=== PATIENT | male | born 1945 | race Caucasian/White ===

== ENCOUNTER 2018-08-23 19:15 | Inpatient (IN) | payer MEDICARE, OTHER ==
[~2018-08-23] VITALS: Ht 175.3 cm; Wt 122.0 kg
--- NOTE | 2018-08-23 19:25 | NUR ---
BIBS FROM HOME C/O DEPRESSION, SI BUT NO PLAN; PT AAOX4, PT ON MONITOR ,VSS, NAD MD QUYEN AT FOR EVAL
[2018-08-23 20:26] LABS: BASOPHILS # (AUTO) 0.1 /CMM (0.0-0.2); BASOPHILS % (AUTO) 0.7 % (0.0-2.0); EOSINOPHILS % (AUTO) 2.7 % (0.0-6.0); HEMATOCRIT 40 % (39-51); HEMOGLOBIN 13.1 g/dL (13.5-17.5); LYMPHOCYTES # (AUTO) 0.9 /CMM (0.8-4.8); LYMPHOCYTES % (AUTO) 10.9 % (20.0-44.0); MEAN CORPUSCULAR HGB CONC 33 g/dl (31.0-36.0); MEAN CORPUSCULAR VOLUME 93 fL (80-96); MONOCYTES # (AUTO) 0.8 /CMM (0.1-1.30); MONOCYTES % (AUTO) 9.9 % (2.0-12.0); NEUTROPHILS % (AUTO) 75.8 % (43.0-81.0); PLATELET COUNT (AUTO) 172 /CMM (150-450); RED BLOOD CELL COUNT(AUTO) 4.28 MIL/uL (4.5-6.0); WHITE BLOOD COUNT (AUTO) 7.9 K/uL (4.3-11.0)
[2018-08-23 20:41] LABS: ACETAMINOPHEN 0 ug/ml (10-30); ALANINE AMINOTRANSFERASE 15 U/L (12-78); ALBUMIN 3.1 g/dL (3.4-5.0); ALCOHOL, BLOOD < 3 mg/dL (0-0); ALKALINE PHOSPHATASE 66 U/L (46-116); ASPARTATE AMINOTRANSFERASE 14 U/L (15-37); BILIRUBIN,DIRECT 0.1 mg/dL (0.0-0.2); BILIRUBIN,TOTAL 0.2 mg/dL (0.2-1.0); CALCIUM, SERUM 8.9 mg/dL (8.5-10.1); CARBON DIOXIDE 30 mmol/L (21-32); CHLORIDE 109 mmol/L (98-107); CREATININE 0.9 mg/dL (0.6-1.3); GLUCOSE 105 mg/dL (74-106); POTASSIUM 3.9 mmol/L (3.5-5.1); SALICYLATE 1.4 mg/dL (2.8-20.0); SODIUM SERUM 144 mmol/L (136-145); TOTAL PROTEIN, SERUM 6.9 g/dL (6.4-8.2)
[2018-08-23 20:55] LABS: UREA NITROGEN, BLOOD 19 mg/dL (7-18)
[2018-08-23] MEDS ORDERED: ASPIRIN 325 MG TABLET PO ONE (21:30)
--- NOTE | 2018-08-23 21:30 | NUR ---
PT WILL BE ADMITTED TO MEDICAL FLOOR FOR CP +TROP, EKG SHOWS AFIB
[2018-08-23] MEDS ORDERED: ASPIRIN 325 MG TABLET ONE (21:31)
--- NOTE | 2018-08-23 21:44 | NUR ---
Nicole villela in [facility] - 08/23/18 at 2146 by LENNY BED 313-1 VIVIENNE MACHUCA
--- NOTE | 2018-08-23 21:46 | NUR ---
BED 309-2 PER HOUSE SUP
[2018-08-23] MEDS ORDERED: MAGNESIUM HYDROXIDE 30 ML UDC PO PRN (22:00)
[2018-08-23] MEDS ORDERED: HYDROCODONE/APAP 5/325MG 1 EACH TABLET PO PRN (22:00)
[2018-08-23] MEDS ORDERED: MAG HYDROX/AL HYDROX/SIMETH 30 ML UDC PO PRN (22:00)
[2018-08-23] MEDS ORDERED: ONDANSETRON HCL/PF 4 MG/2 ML VIAL IVP PRN (22:00)
[2018-08-23] MEDS ORDERED: ZOLPIDEM TARTRATE 5 MG TABLET PO PRN (22:00)
[2018-08-23] MEDS ORDERED: ACETAMINOPHEN 325 MG TABLET PO PRN (22:00)
[2018-08-23] MEDS ORDERED: Z GUARD REMEDY 2 OZ OINT TP PRN (22:00)
--- NOTE | 2018-08-23 22:30 | NUR ---
URINE COLLECTED AND SENT TO LAB
--- NOTE | 2018-08-23 22:40 | NUR ---
report given to taylor apodaca for gabriela
[2018-08-23] MEDS: IV NS 0.9% 1,000 ML IV SCH (23:48)
[2018-08-24] VITALS (7 sets, daily range): BP systolic 120–150; BP diastolic 60–87
--- NOTE | 2018-08-24 | NUR ---
RN NOTES ADMITTED PATIENT FROM ER DUE TO CHEST PAIN AND ANXIETY, ALERT AND ORIENTED X4, ON ROOM AIR, LUNGS ARE CLEAR ON AUSCULTATION, ABDOMEN SOFT AND NON TENDER, ANXIOUS AND DEPRESSED PER PATIENT. PATIENT LIVES WITH OTHER PEOPLE, NOT EXACTLY ROOM MATES, AND PEOPLE LIVING WITH PATIENT CAUSES ANXIETY AND DEPRESSION. DURING INTERVIEW, PATIENT DISCLOSED HAVING SUICIDAL IDEATION, WITH PLAN TO SHOOT HEAD, DOES NOT OWN A GUN BUT KNOWS SOMEONE WITH A GUN AND HE CAN BORROW. AT THIS TIME, PATIENT DOES NOT WANT TO HURT SELF "THAT'S WHY I WENT TO THE ER." SKIN INTACT, AMBULATES, CONTINENT OF BOWEL AND BLADDER. PER ORDER, WILL BE ADMITTED FOR CHEST PAIN, DENIES CHEST PAIN AT THIS TIME, TROPONIN 0.027. ADMITTED SMOKING MARIJUANA FOR ANXIETY, TAKEN AND IN UNIT SAFE.
--- NOTE | 2018-08-24 00:15 | NUR ---
RN NOTES PER JEREMI AGUILAR RN, NO NEED FOR SITTER
--- NOTE | 2018-08-24 06:04 | NUR ---
RN NOTES PATIENT IS AWAKE AND ALERT, IRRITABLE, NOTED WHEEZING, MD NOTIFIED, NO NEW ORDER, MONITOR FOR SHORTNESS OF BREATH, COMPLAINING OF ANXIETY AND RESTLESSNESS, NO NEW ORDER FROM DR. VASQUEZ, MONITOR FOR SAFETY
--- NOTE | 2018-08-24 07:30 | NUR ---
COMPUTER TECHNOLOGY TEACHER OPENING NOTE RECEIVED PT IN BED, RESTING WITH EYES CLOSED. EYES OPEN SPONTANEOUSLY TO VERBAL STIMULI. PT IS A/OX4, IRRITABLE AND C/O OF BEING "EMOTIONALLY MESSED UP" AT THIS TIME. PT DENIES CURRENT SI AND AUDITORY OR VERBAL HALLUCINATIONS. PT REPORTS HAVING PREVIOUS THOUGHTS OF SI BUT DECLINES TO SPECIFY WHEN. PT STATES HE DOES NOT HAVE ANY PLANS TO HARM HIMSELF WHILE IN THE HOSPITAL. PER FAMILY PRACTICE NURSE PRACTITIONER RN, NO SITTER IS NEEDED AT THIS TIME PER NIGHT NURSING FIRE INVESTIGATION MANAGER. PT DENIES CHEST PAIN, SOB, BREATHING IS EVEN AND UNLABORED ON ROOM AIR. RIGHT FA #18G IV IS INFUSING NS @ 100ML/HR. PT IS ON INSECT CONTROL AIDE, HOWEVER 2 LEADS ARE OFF AND PT IS REFUSING TO HAVE LEADS REPLACED AT THIS TIME. EXPLAINED RISKS AND BENEFITS, PT STILL REFUSED AND STATES "IT'S TOO PAINFUL.". ALL NEEDS ATTENDED TO. BED IS LOCKED AND IN LOWEST POSITION, SIDE RAILS UP X3, BED ALARM ON, CALL LIGHT AND POSSESSIONS WITHIN REACH.
--- NOTE | 2018-08-24 08:15 | NUR ---
FLOOR FINISHER NOTE PER CHARGE NURSE NO SITTER INDICATED AT THIS TIME BECAUSE PT IS NOT ACTIVELY SUICIDAL.
[2018-08-24] MEDS: IV NS 0.9% 1,000 ML IV SCH (08:26)
--- NOTE | 2018-08-24 08:30 | NUR ---
BAKER PAINT NOTE PER GPS REPORTING LEAD THE UNIT RECEIVED COPY OF FAXED FACE SHEET.
[2018-08-24] MEDS ORDERED: IV NS 0.9% 1,000 ML IV PRN (08:38)
[2018-08-24 10:45] LABS: BASOPHILS % (AUTO) 0.8 % (0.0-2.0); EOSINOPHILS % (AUTO) 3.4 % (0.0-6.0); HEMATOCRIT 40 % (39-51); LYMPHOCYTES # (AUTO) 0.7 /CMM (0.8-4.8); LYMPHOCYTES % (AUTO) 11.2 % (20.0-44.0); MEAN CORPUSCULAR HGB CONC 33 g/dl (31.0-36.0); MEAN CORPUSCULAR VOLUME 94 fL (80-96); MONOCYTES # (AUTO) 0.7 /CMM (0.1-1.30); MONOCYTES % (AUTO) 10.2 % (2.0-12.0); NEUTROPHILS # (AUTO) 4.8 /CMM (1.8-8.9); NEUTROPHILS % (AUTO) 74.4 % (43.0-81.0); PLATELET COUNT (AUTO) 158 /CMM (150-450); RED BLOOD CELL COUNT(AUTO) 4.21 MIL/uL (4.5-6.0); WHITE BLOOD COUNT (AUTO) 6.4 K/uL (4.3-11.0)
[2018-08-24 11:06] LABS: CALCIUM, SERUM 8.5 mg/dL (8.5-10.1); CREATININE 0.9 mg/dL (0.6-1.3); MAGNESIUM 1.8 mg/dL (1.8-2.4); PHOSPHORUS 3.9 mg/dL (2.5-4.9)
--- NOTE | 2018-08-24 11:20 | NUR ---
NOZZLE TENDER NOTE INFORMED REGARDING PT REQUEST FOR ATIVAN PRN FOR ANXIETY. PER DR. LAU "GET PSYCH CONSULT".
[2018-08-24] MEDS ORDERED: MAG30ORA PO (11:50)
[2018-08-24] MEDS ORDERED: ACET325T53 PO (11:50)
[2018-08-24] MEDS ORDERED: MAGN400O6 PO (11:50)
--- NOTE | 2018-08-24 18:24 | NUR ---
MS RN OPENING NOTE PT IN BED, RESTING WITH EYES CLOSED. EYES OPEN SPONTANEOUSLY TO VERBAL STIMULI. PT IS A/OX4, PT DENIES CURRENT SI AND AUDITORY OR VERBAL HALLUCINATIONS. PT STATES HE DOES NOT HAVE ANY PLANS TO HARM HIMSELF WHILE IN THE HOSPITAL.. PT DENIES CHEST PAIN, SOB, BREATHING IS EVEN AND UNLABORED ON ROOM AIR. RIGHT FA #18G IV IS SALINE LOCKED WITHOUT REDNESS OR SWELLING. ADLS PROVIDED. PT IS CLEARED BY CARDIOLOGY FOR POSSIBLE TRANSFER TO GPS UNIT, PENDING PSYCH EVAL. ALL NEEDS ATTENDED TO. BED IS LOCKED AND IN LOWEST POSITION, SIDE RAILS UP X2, BED ALARM ON, CALL LIGHT AND POSSESSIONS WITHIN REACH. WILL ENDORSE TO ORTHOPEDIC DESIGNER NURSE FOR CONTINUITY OF CARE.
--- NOTE | 2018-08-24 19:31 | NUR ---
MS/RN NOTES PATIENT IN BED. ABLE TO VERBALIZE NEEDS, DISCUSSED WITH AM RN REGARDING DC PLANNING AND TRANSFER TO PSYCH, AWAITING FOR PSYCH CONSULT, DR KRAFT, PATIENT WAS MADE AWARE, VERBALIZE THE NEED TO BE IN PSYCH UNIT, NO PAIN REPORTED AND OBSERVED. COOPERATIVE BUT ANXIOUS AND WORRIED. WILL MONITOR. CALL LIGHTS WITHIN REACH. WILL MONITOR.
--- NOTE | 2018-08-24 19:47 | NUR ---
MS/RN NOTES PATIENT VERBALIZED THE NEED TO BE IN PSYCH UNIT, REPORTED FEELING THE NEED TO BE CHECKED IN KAYCE VERBALIZED THAT HE NEEDS SOME TREATMENT, WAS INFORMED ABOUT PSYCH MD COMING IN AWAITING WILL F/U, PATIENT REQUESTED IV TO BE REMOVED.
--- NOTE | 2018-08-24 20:22 | NUR ---
KAYCE VERBALIZED THE NEED TO SEE THE PSYCH DOCTOR, UPSET BEHAVIOR , CHARGE NURSE ASSISTED AND INFORMED ABOUT SR AYDETYSON WILL DO HIS ROUNDS IN JUST AWHILE. PATIENT INSIST THAT HE HAS BEEN WAITING FOR THE DOCTOR EVER SINCE THE MORNING HIS BEHAVIOR IS EXCALATING THAT HE REQUIRES TREATMENT AND TO BE CHECK IN MENTAL UNIT.
--- NOTE | 2018-08-24 21:00 | NUR ---
MS/RN NOTES PATIENT DISCHARGE TO GPS OVERFLOW DR BUTCHER AT BEDSIDE DISCUSSED AND ASSESS PATIENT WITH ORDERS RECEIVED, ID BAND REMOVE AND REPLACE FOR GPS, AWAKE, ALERT, ROOM ASSIGNED AT 309 GPS. REQUESTED ATIVAN FOR ANXIETY. ORDER PLACED AND VERIFIED.
== END 2018-08-24 20:00 | DRG 880 ==
LOC: ER 19:23 → TELE 22:05 → MED 08-24 15:51
PROVIDERS: ADMIT Family Medicine
DX: F41.9 Anxiety disorder, unspecified (principal); N17.0 Acute kidney failure with tubular necrosis; E44.1 Mild protein-calorie malnutrition; F32.9 Major depressive disorder, single episode, unspecified; J44.9 Chronic obstructive pulmonary disease, unspecified; M19.90 Unspecified osteoarthritis, unspecified site; Z82.49 Family history of ischemic heart disease and other diseases of the circulatory system; Z90.49 Acquired absence of other specified parts of digestive tract; E86.9 Volume depletion, unspecified; D63.8 Anemia in other chronic diseases classified elsewhere; E66.9 Obesity, unspecified; Z68.39 Body mass index [BMI] 39.0-39.9, adult; Z72.0 Tobacco use
CPT/HCPCS: 36415; 71045-TC; 80048-TC; 80061-TC; 80076-TC; 80305; 83735-TC; 84100-TC; 84484-TC; 85025-TC; 87081-TC; G0378; G0480; J7030

== ENCOUNTER 2018-08-24 21:07 | Inpatient (IN) | payer MEDICARE, OTHER ==
[~2018-08-24] VITALS: Ht 175.3 cm; Wt 112.9 kg
[~2018-08-24 21:07] MED LIST: ACET325T53 PO; MAG30ORA PO; MAGN400O6 PO
[2018-08-24 21:30] VITALS: BP 135/87
[2018-08-24] MEDS ORDERED: MAGNESIUM HYDROXIDE 30 ML UDC PO PRN (21:30)
[2018-08-24] MEDS ORDERED: TEMAZEPAM 7.5 MG CAPSULE PO PRN (21:30)
[2018-08-24] MEDS ORDERED: MAG HYDROX/AL HYDROX/SIMETH 30 ML UDC PO PRN (21:30)
[2018-08-24] MEDS ORDERED: ACETAMINOPHEN 325 MG TABLET PO PRN (21:30)
--- NOTE | 2018-08-24 21:30 | NUR ---
gps/overflow rn notes PATIENT ALERT, ORIENTED X3 ABLE TO VERBALIZE NEEDS, REPORTED BEHAVIOR OF SELF HARM, OSET BEHAVIOR REQUIRING ASSISTANCE FOR PSYCH CONSULT , OBSERVE AGITATED AND ANXIOUS SINCE MORNING, PER MD PCP DISCHARGE AND CLEARED BY CARDIAC AND DR BUTCHER ADMITING PSYCH MD TO RECEIVE PATIENT, NEW ADMIT ORDERS RECEIVED, CHARGE NURSE GPS ASSIST IN MEDICATION ORDERS, PATIENT BELONGINGS RECEIVED AND ENTERED, DISCUSSED PLAN OF CARE, WOULD BE MEDICATION FOR BEHAVIOR AND AGITATION, PHARMACY VERIFIED ORDER REQUESTED BY PATIENT ATIVAN AND SLEEPING PILL. ORDER RECEIVED. AND PATIENT VOLUNTARILY ADMIT TO GPS PATIENT REPORTED BEHAVIOR ESCALATION SEEK TREATMENT. WITH SITTER AT GPS OVER FLOW, AMBULATORY, ABLE TO COOPERATE AND PARTICIPATE AFTER DISCUSSED CARE AND PSYCH MD.WILL MONITOR.BELONGINGS RECEIVED, REFUSED TO HAVE PHOTO TAKEN AT THIS TIME. ABLE TO SIGNED CONSENT FORMS. VERBALIZE UNDERSTANDING.
[2018-08-24] MEDS: LORAZEPAM 0.5 MG TABLET PO PRN (21:46)
[2018-08-24] MEDS: TEMAZEPAM 15 MG CAPSULE PO PRN (23:14)
--- NOTE | 2018-08-25 | NUR ---
REFUSES PHOTO TAKEN OF WOUND.
--- NOTE | 2018-08-25 04:41 | NUR ---
REFUSED SKIN CHECK, REPORTED SKIN INTACT, WILL F/.U
--- NOTE | 2018-08-25 05:40 | NUR ---
REFUSED LAB DRAW.
--- NOTE | 2018-08-25 06:22 | NUR ---
309-G-2/RN NOTES PATIENT ALERT, ORIENTED, ABLE TO SLEEP INTERMITENTLY, ON BEHAVIOR MONITORING AND RELIEF OF AGITATION AND GIVEN SLEEP MEDS AT BEDTIME. WILL ENDORSE TO AM RN FOR EMMANUEL.
[2018-08-25] MEDS: LORAZEPAM 0.5 MG TABLET PO PRN ×2 (07:51→14:04)
--- NOTE | 2018-08-25 07:52 | NUR ---
RECEIVED PT REPORT FROM RN, PT HERE ON A VOLUNTARY HOLD R/T VERBALIZING FEELINGS OF HURTING ONE SELF. IN BED SLEEPING NO SOB NOT IN DISTRESS, RESPONDS TO VERBAL AND TACTILE STIMULI. A/Ox4 DENIES PAIN BUT C/O OF FEELING ANXIOUS. PRN ATIVAN 1MG GIVEN. WILLL MONITOR FOR ANY ASE. RECEIVED CONSENT FOR ADMINISTRATION OF PROZAC.
[2018-08-25] MEDS: FLUOXETINE HCL 20 MG CAPSULE PO SCH (09:30)
--- NOTE | 2018-08-25 09:33 | NUR ---
voided x1
--- NOTE | 2018-08-25 10:13 | NUR ---
voided in bathroom x1
--- NOTE | 2018-08-25 10:14 | NUR ---
offered pt a shower/change of clothes. refused at the moment but agreed to a later time.
--- NOTE | 2018-08-25 10:58 | NUR ---
voided in bathroom x 1,
--- NOTE | 2018-08-25 11:12 | NUR ---
pt refused lab draw, explained b/r of blood test. refused x 3
--- NOTE | 2018-08-25 12:13 | NUR ---
pt voided x1 in bathroom.
--- NOTE | 2018-08-25 13:45 | NUR ---
pt voided x 1 in bathroom. c/o feeling anxious and restless. ativan 1mg prn given
--- NOTE | 2018-08-25 14:48 | NUR ---
pt voided x 1 in bathroom
--- NOTE | 2018-08-25 15:00 | NUR ---
ant cryogenic transport driver: notes received pt in bed lying on his right side. sitter at bedside. no distress noted. pt is here voluntary. call light within reach. will continue to monitor.
[2018-08-25 16:00] VITALS: BP 144/87
--- NOTE | 2018-08-25 17:00 | NUR ---
gps ov doctor of nursing practice: notes lead burner supervisor called and informed us that we can move pt to gps unit now, pt made aware and wants to eat his dinner first. dinner served. report given to laurent avery) for continuity of care.
--- NOTE | 2018-08-25 17:40 | NUR ---
GPS RN OVERFLOW TRANSFER PT ARRIVED TO GPS UNIT VIA W/C FROM MS. PT IS A/O X3, AFEBRILE. RESPIRATIONS ARE EVEN AND UNLABORED, NOT IN ANY ACUTE DISTRESS NOTED. PT DENIES ANY PAIN AT THIS TIME, NO C/O SOB, N/V. PUPILS ARE REACTIVE TO LIGHT, BILATERAL HAND SORT LINE ARE STRONG AND EQUAL. PT IS AMBULATORY AND CONTINENT. ABDOMEN IS SOFT AND NONDISTENDED, BOWEL SOUNDS ARE PRESENT IN ALL 4 QUADRANTS UPON AUSCULTATION. DENIES ANY BLADDER DISCOMFORT. NO IV ACCESS. PT REFUSES SKIN ASSESSMENT. PER PREVIOUS NURSE FROM MS, PT'S SKIN IS INTACT. ALL BELONGINGS ARRIVED WITH PT AND ACCOUNTED FOR. PT STATED HE WANTS TO WATCH TV AND IS IN ACTIVITY ROOM WITH GROUP. WILL MONITOR THROUGHOUT SHIFT FOR CONTINUITY OF CARE.
[2018-08-25 17:45] VITALS: BP 129/69
--- NOTE | 2018-08-25 17:45 | NUR ---
gps ov farm tractor operator: notes moved pt to gps unit room 216-1 with all valuables/belongings via w/c accompanied by 2 staff.
[2018-08-25 20:18] VITALS: BP 127/76
[2018-08-26 08:00] VITALS: BP 153/92
[2018-08-26] MEDS: FLUOXETINE HCL 20 MG CAPSULE PO SCH (08:35)
--- NOTE | 2018-08-26 11:15 | NUR ---
JANNY met with the pt and he stated that he wanted to be provided with information regarding how he can replace his certificate. JANNY informed him that she would research how to go about doing that and would return with some information. Once the SW went to her office, she researched where the pt can go to replace his certificate in [place] and wrote down the information and provided it to the pt. The pt stated that he would call and figure out his situation.
--- NOTE | 2018-08-26 12:16 | NUR ---
Initial Discharge Plan: Pt currently resides at a facility called [facility] located at [address] [place] [address]; ([phone]). Per pt, he would not like to return because he did not like the environment. SW will work with the pt and the MD regarding appropriate discharge planning. SW will form a safe and proper discharge.
[2018-08-26] MEDS: LORAZEPAM 0.5 MG TABLET PO PRN ×2 (14:15→20:59)
--- NOTE | 2018-08-26 14:19 | NUR ---
GPS RN NOTE: PT REQUESTING ATIVAN FEELING ANXIOUS, ATIVAN 1 MG PO PRN GIVEN PER ORDER WILL CONTINUE MONITORING FOR SAFETY AND BEHAVIOR Q 15 MIN
[2018-08-26 16:00] VITALS: BP 110/73
[2018-08-26 19:02] LABS: CHOLESTEROL 147 mg/dL (<200); HDL CHOLESTEROL 39 mg/dL (40-60); LDL 99 mg/dL (0-99); TRIGLYCERIDES 112 mg/dL (30-150)
[2018-08-26] MEDS: DIVALPROEX SODIUM 250 MG TABLET.DR PO SCH (20:25)
[2018-08-26 20:29] VITALS: BP 143/81
[2018-08-26 21:02] LABS: CREATININE 1.3 mg/dL (0.6-1.3)
[2018-08-26] MEDS: TEMAZEPAM 15 MG CAPSULE PO PRN (23:55)
[2018-08-27 08:00] VITALS: BP 125/65
[2018-08-27] MEDS: FLUOXETINE HCL 20 MG CAPSULE PO SCH (09:00)
[2018-08-27] MEDS ORDERED: DIVALPROEX SODIUM 250 MG TABLET.DR PO SCH (09:00)
[2018-08-27] MEDS: DIVALPROEX SODIUM 250 MG TABLET.DR PO SCH ×3 (09:00→16:16)
[2018-08-27] MEDS: LORAZEPAM 0.5 MG TABLET PO PRN ×2 (11:32→21:10)
--- NOTE | 2018-08-27 11:33 | NUR ---
GPS RN NOTE: PT REQUESTING ATIVAN FEELING ANXIOUS, ATIVAN 1 MG PO PRN GIVEN PER ORDER WILL CONTINUE MONITORING FOR SAFETY AND BEHAVIOR Q 15 MIN
--- NOTE | 2018-08-27 15:31 | NUR ---
JANNY met with the pt in the activities room because he requested to have a meeting. The pt stated that he would like the SW to provide him with the number for the [employer]. JANNY went to her office to research the phone number and called the unit so that the Military Logistics Specialist, Anjel, was able to pass the number on to the pt.
[2018-08-27 16:00] VITALS: BP 151/74
--- NOTE | 2018-08-27 19:34 | NUR ---
RN NOTE :PATIENT WANTS TO LEAVE AT 11:00 AM .AT 11:10 PATIENT PUT ON 5150 HOLD FOR DTS AND GD BY ALLISON .
[2018-08-27 20:42] VITALS: BP 122/75
[2018-08-28] MEDS: TEMAZEPAM 15 MG CAPSULE PO PRN ×2 (00:05→22:13)
[2018-08-28 08:00] VITALS: BP 122/59
[2018-08-28] MEDS: FLUOXETINE HCL 20 MG CAPSULE PO SCH (08:31)
[2018-08-28] MEDS: DIVALPROEX SODIUM 250 MG TABLET.DR PO SCH ×3 (08:31→16:48)
[2018-08-28 16:00] VITALS: BP 138/80
[2018-08-28] MEDS: LORAZEPAM 0.5 MG TABLET PO PRN (16:54)
[2018-08-28] MEDS ORDERED: ALBUTEROL FS 2.5 MG/0.5 ML VIAL.NEB NEB PRN (17:30)
--- NOTE | 2018-08-28 17:56 | NUR ---
PT. SEEN ON THE VERY SIDE OF THE BED, DENIES HE FELL, HE SAID THAT HIS COFFEE FALL IN THE FLOOR. NO PAIN REPORTED. WILL CONTINUE TO MONITOR FOR SAFETY.
[2018-08-28] MEDS ORDERED: LACT1CAP89 PO (19:57)
[2018-08-28] MEDS ORDERED: HYDR12.5 PO (19:57)
[2018-08-28] MEDS ORDERED: APIX5TAB4 PO (19:57)
[2018-08-28] MEDS ORDERED: AMLO5TAB9 PO (19:57)
[2018-08-28] MEDS ORDERED: ASPI-869 PO (19:57)
[2018-08-28] MEDS ORDERED: ATOR40TA PO (19:57)
[2018-08-28] MEDS ORDERED: LEVO125T8 PO (19:58)
[2018-08-28] MEDS ORDERED: ONDA4TAB11 PO (19:58)
[2018-08-28] MEDS ORDERED: MULT-1119 PO (19:58)
[2018-08-28] MEDS ORDERED: NA P133E RC (19:58)
[2018-08-28] MEDS ORDERED: HYDR-4076 PO (19:58)
[2018-08-28] MEDS ORDERED: ZOLP5TAB8 PO (19:58)
[2018-08-28] MEDS ORDERED: MENT4PAS TP (19:58)
[2018-08-28] MEDS ORDERED: METO25TA6 PO (19:58)
[2018-08-28] MEDS ORDERED: ESCI10TA PO (19:58)
[2018-08-28 20:00] VITALS: BP 114/56
--- NOTE | 2018-08-29 00:16 | NUR ---
PATIENT STILL AWAKE, ANXIOUS, OFFERED AND PREPARED ATIVAN 1 MG TAB X2, AND REFUSED
[2018-08-29] MEDS: LORAZEPAM 0.5 MG TABLET PO PRN ×2 (07:07→16:16)
[2018-08-29 08:00] VITALS: BP 130/61
[2018-08-29] MEDS: DIVALPROEX SODIUM 250 MG TABLET.DR PO SCH ×3 (08:21→16:13)
[2018-08-29] MEDS: FLUOXETINE HCL 20 MG CAPSULE PO SCH (08:21)
--- NOTE | 2018-08-29 08:40 | NUR ---
JANNY was left a message from the pt's psychiatrist, Dr. Calvillo, stating that the pt will be discharged today. JANNY then faxed two referrals to two jail facilities for the pt that are listed below: [facility] with attention to Vickie to the fax number: [phone] [facility] to the fax number: [phone].
--- NOTE | 2018-08-29 11:09 | NUR ---
Karen ([phone]) from [facility] stated that the pt was accepted to their facility today. SW stated that she will schedule his discharge for 12:30PM.
--- NOTE | 2018-08-29 11:09 | NUR ---
SW conducted a substance abuse intervention with the pt due to cannabis use.
--- NOTE | 2018-08-29 11:25 | NUR ---
DR. BUTCHER GAVE AN ORDER TO D/C HOLD AND D/C TO [facility], TO CONTINUE SAME MEDS INCLUDING PRN AND TO FOLLOW UP WITH PSYCH AND MEDICAL DOCTORS.
--- NOTE | 2018-08-29 12:18 | NUR ---
REPORT GIVEN TO REID MONTEMAYOR AT [facility], PER REID RN, THEY WILL NOT ACCEPT PATIENT'S MARIJUANA. WILL LET CHARGE NURSE KNOW. PATIENT RECEIVED DISCHARGED INSTRUCTIONS AND VERBALIZED UNDERSTANDING. DENIES SI/HI AT THIS TIME. PATIENT IS COOPERATIVE. SKIN ASSESSMENT DONE AND SKIN IS INTACT. AWAITING FOR AMBULANCE AT THIS TIME.
--- NOTE | 2018-08-29 12:30 | NUR ---
Karen ([phone]) from [facility] called the SW and stated that the pt can no longer be accepted due to his marijuana use and because they are not a locked facility.
--- NOTE | 2018-08-29 13:05 | NUR ---
JANNY faxed a referral to [facility] ([facility]) with attention to Krysta to the fax number: [phone].
--- NOTE | 2018-08-29 13:45 | NUR ---
Sim ([phone]) from [facility] called the SW and informed her that it does not seem like the facility will accept the pt due to the suicidal ideation that is stated in the notes regardless of the SW stating that the pt is currently denying it now. Sim stated that he would have the DON look into it and then he will give the SW a call back.
--- NOTE | 2018-08-29 14:10 | NUR ---
JANNY called Gabriela ([phone]) from [facility] and stated that a referral was faxed over early in the morning. She stated that she had not seen it earlier but has it now. She stated that she will call the SW back with a response on the referral.
--- NOTE | 2018-08-29 14:30 | NUR ---
Gabriela ([phone]) from [facility] called the SW and stated that their facility will not be accepting the pt due to the suicidal ideation that is present in the psychiatrist notes.
--- NOTE | 2018-08-29 15:30 | NUR ---
JANNY faxed a referral to two other detention facilities that are under the [facility] [employer] Chief Executive Officer, Geo, to the fax number: [phone]. [facility]
--- NOTE | 2018-08-29 15:55 | NUR ---
PT. WILL BE DISCHARGED TO [facility] AND DR. BUTCHER IS AWARE.
[2018-08-29 16:00] VITALS: BP 130/66
--- NOTE | 2018-08-29 16:00 | NUR ---
MAICO ([phone]), support services coordinator from [facility], contacted the and stated that the pt was accepted to their facility.
--- NOTE | 2018-08-29 16:12 | NUR ---
Discharge Note: Pt was discharged to [facility] ([facility]) located at [address] [place] [address]; ([phone]). Pt was transported via [facility] (Trip #[id number]) at 5PM. There was no one in the pts support system to notify about this discharge. Upon discharge, the pt appeared to be in a euthymic mood and presented with a distressed affect. Pt denied both suicidal and homicidal ideation as well as auditory and visual hallucinations. Pt was also provided with three substance abuse referrals and smoking cessations referrals at discharge. Pt will continue to address his substance use with the treatment team at the long term [facility]. Pt will be under the care of psychiatrist, Dr. Camarillo, located at [address] [place] [address]; and toggle press operator, Dr. Fernandes, located at [address] [place] [address]; .
--- NOTE | 2018-08-29 17:35 | NUR ---
PATIENT AGREED TO LEAVE THE MARIJUANA IN THIS FACILITY. MARIJUANA GIVEN TO SECURITY.
--- NOTE | 2018-08-29 17:40 | NUR ---
REPORT GIVEN TO ROBERTO MONTEMAYOR AT [facility], PATIENT IN STABLE CONDITION, DENIES SI/HI AT THIS TIME. BELONGINGS RECONCILED AND COMPLETE. SKIN ASSESSMENT COMPLETED. SKIN DRY AND INTACT. PATIENT CLEARED BY DR. BUTCHER. LEFT VIA AMBULANCE IN NO DISTRESS.
--- NOTE | 2018-09-12 09:38 | NUR ---
15 Day Substance Abuse Follow Up: Pt is exempt from the follow up due to his discharge to a long term facility called [facility].
== END 2018-08-29 17:40 | DRG 885 ==
LOC: GPSOV 21:07 → GPS 08-25 17:38
PROVIDERS: ADMIT Psychiatry & Neurology Psychiatry; ATTEND Psychiatry & Neurology Psychiatry
DX: F39 Unspecified mood [affective] disorder (principal); R45.851 Suicidal ideations; F32.9 Major depressive disorder, single episode, unspecified; F41.9 Anxiety disorder, unspecified; R79.89 Other specified abnormal findings of blood chemistry; J44.9 Chronic obstructive pulmonary disease, unspecified; D64.9 Anemia, unspecified; M19.90 Unspecified osteoarthritis, unspecified site; E88.09 Other disorders of plasma-protein metabolism, not elsewhere classified; Z72.0 Tobacco use
CPT/HCPCS: 36415; 80061-TC; 82565-TC

== ENCOUNTER 2019-03-19 13:22 | Inpatient (IN) | payer MEDICARE, OTHER ==
[~2019-03-19] VITALS: Ht 175.3 cm; Wt 111.6 kg
[~2019-03-19 13:22] MED LIST changes: +AMLO5TAB9 PO; +APIX5TAB4 PO; +ASPI-869 PO; +ATOR40TA PO; +ESCI10TA PO; +HYDR-4076 PO; +HYDR12.5 PO; +LACT1CAP89 PO; +LEVO125T8 PO; +MENT4PAS TP; +METO25TA6 PO; +MULT-1119 PO; +NA P133E RC; +ONDA4TAB11 PO; +ZOLP5TAB8 PO
--- NOTE | 2019-03-19 13:22 | NUR ---
BIB RA 39 FROM [facility], FOR L SIDED CHEST PAIN 45 MINUTES BEAD PREPARER,ASA 162 MG GIVEN, TO ER BED 2, HOOKED TO GUT CLEANER, CHANGED TO GOWN, PROVIDED W WARM BLANKET, AWAITING MD REED.
[2019-03-19] MEDS ORDERED: CLOP75TA15 PO (13:32)
[2019-03-19] MEDS ORDERED: BUPR75TA8 PO (13:32)
[2019-03-19] MEDS ORDERED: ARIP5TAB10 PO (13:32)
--- NOTE | 2019-03-19 13:33 | NUR ---
EMAIL MARKETING ASSISTANT AT BEDSIDE Addendum: 03/19/19 at 1358 by FRANCISCO REFUSED CHEST XRAY, MADE DR QUEEN AWARE
[2019-03-19 13:54] LABS: BASOPHILS # (AUTO) 0.1 /CMM (0.0-0.2); BASOPHILS % (AUTO) 0.8 % (0.0-2.0); EOSINOPHILS % (AUTO) 2.3 % (0.0-6.0); HEMATOCRIT 44 % (39-51); HEMOGLOBIN 14.8 g/dL (13.5-17.5); LYMPHOCYTES # (AUTO) 0.8 /CMM (0.8-4.8); MEAN CORPUSCULAR HGB CONC 33 g/dl (31.0-36.0); MEAN CORPUSCULAR VOLUME 93 fL (80-96); MONOCYTES # (AUTO) 0.6 /CMM (0.1-1.30); MONOCYTES % (AUTO) 7.8 % (2.0-12.0); NEUTROPHILS # (AUTO) 5.7 /CMM (1.8-8.9); NEUTROPHILS % (AUTO) 78.1 % (43.0-81.0); PLATELET COUNT (AUTO) 188 /CMM (150-450); RED BLOOD CELL COUNT(AUTO) 4.76 MIL/uL (4.5-6.0); WHITE BLOOD COUNT (AUTO) 7.3 K/uL (4.3-11.0)
--- NOTE | 2019-03-19 14:03 | NUR ---
DR WOMACK AT BEDSIDE, PATIENT AGREED TO HAVE CHEST XRAY
[2019-03-19 14:05] LABS: CARBON DIOXIDE 30 mmol/L (21-32); CHLORIDE 103 mmol/L (98-107); CREATININE 1.2 mg/dL (0.6-1.3); GLUCOSE 115 mg/dL (74-106); SODIUM SERUM 140 mmol/L (136-145); UREA NITROGEN, BLOOD 21 mg/dL (7-18)
[2019-03-19 14:12] LABS: ALANINE AMINOTRANSFERASE 13 U/L (12-78); ALBUMIN 3.3 g/dL (3.4-5.0); ALKALINE PHOSPHATASE 64 U/L (46-116); ASPARTATE AMINOTRANSFERASE 18 U/L (15-37); BILIRUBIN,DIRECT 0.1 mg/dL (0.0-0.2); BILIRUBIN,TOTAL 0.2 mg/dL (0.2-1.0); TOTAL PROTEIN, SERUM 7.3 g/dL (6.4-8.2)
--- NOTE | 2019-03-19 14:24 | NUR ---
ELECTROPHYSIOLOGY SCIENTIST AT BEDSIDE
--- NOTE | 2019-03-19 15:11 | NUR ---
REPORT GIVEN TO SUSANNA OF TELE UNIT
--- NOTE | 2019-03-19 15:15 | NUR ---
MORTGAGE LOAN OFFICER ADMITT PATIENT ADMIT ALERT ORITNED X4. AMBULATORY AND PARTICIPATING IN CARE. PATIENT IV PATENT, CARDIAC DIET, GENERALIZED RASH PRESENT, ISOLATION FOR SCABIES PATIENT STATED TO RN " WHERE I STAY THERE IS BED BUGS". MD AWARE WOUND TEAM KARY WILL DO SCABIES SCRAPING TOMORROW AM. CONSENT FOR CTA WITH 3D IMAGE SIGNED AND PATIENT IS AWARE. NPO AFTER MIDNIGHT. ENDORSED TO JAVAD PICUTRE OF ABDOMENT TAKEN AND IN CHART.
[2019-03-19] MEDS ORDERED: ZOLPIDEM TARTRATE 5 MG TABLET PO PRN (15:30)
[2019-03-19] MEDS ORDERED: MAG HYDROX/AL HYDROX/SIMETH 30 ML UDC PO PRN (15:30)
[2019-03-19] MEDS ORDERED: HYDROCODONE/APAP 5/325MG 1 EACH TABLET PO PRN (15:30)
[2019-03-19] MEDS ORDERED: Z GUARD REMEDY 2 OZ OINT TP PRN (15:30)
[2019-03-19] MEDS ORDERED: ONDANSETRON HCL/PF 4 MG/2 ML VIAL IVP PRN (15:30)
[2019-03-19] MEDS ORDERED: MAGNESIUM HYDROXIDE 30 ML UDC PO PRN (15:30)
[2019-03-19] MEDS ORDERED: ACETAMINOPHEN 325 MG TABLET PO PRN (15:30)
--- NOTE | 2019-03-19 19:25 | NUR ---
TELE/RN NOTED PATIENT RECEIVED IN BED, ALERT, AWAKE, WATCHING TV AT THIS TIME. PATIENT A/O X4, DENIES ANY PAIN OR DISCOMFORT, NO S/S OF ACUTE DISTRESS NOTED AT THIS TIME. RESPIRATION EVEN AND UNLABORED. NO SOB NOTED. LAC 20 IV SITE WITH NO S/S OF INFECTION, INFILTRATION. PATIENT ON TELE MONITORING WITH S/R . SAFETY MAINTAINED, BED AT THE LOWEST LOCKED POSITION. CALL LIGHT WITHIN REACH. KEPT CLEAN AND DRY. ISOLATION PRECAUTIONS MAINTAINED AND STRICTLY OBSERVED. WILL CONTINUE TO MONITOR PATIENT PER PLAN OF CARE.
[2019-03-19 20:00] VITALS: BP 140/75
[2019-03-20] VITALS: BP 129/77
[2019-03-20 04:00] VITALS: BP 146/64
--- NOTE | 2019-03-20 06:33 | NUR ---
TELE/RN NOTED PATIENT REMAINED IN STABLE CONDITION. NO SIGNIFICANT CHANGE IN CONDITION NOTED. KEPT NPO AFTER MID NIGHT FOR THE PROCEDURE TODAY. DENIES ANY PAIN OR DISCOMFORT, NO S/S OF ACUTE DISTRESS NOTED AT THIS TIME. RESPIRATION EVEN AND UNLABORED. NO SOB NOTED. LAC 20 IV SITE WITH NO S/S OF INFECTION, INFILTRATION. PATIENT ON TELE MONITORING WITH S/R . SAFETY MAINTAINED, BED AT THE LOWEST LOCKED POSITION. CALL LIGHT WITHIN REACH. KEPT CLEAN AND DRY. ISOLATION PRECAUTIONS MAINTAINED AND STRICTLY OBSERVED. WILL ENDORSE TO AM SHIFT NURSE FOR EMMANUEL.
--- NOTE | 2019-03-20 07:25 | NUR ---
RN OPENING NOTES REPORT RECEIVED FROM DENTAL MOLD MAKER RN. PT ON TELE MONITOR SB. PER REPORT PT KEPT NPO AT MIDNIGHT FOR PROCEDURE. PT IS CURRENTLY SLEEPING AND DOES NOT WANT TO BE DISTURBED. PT IS IN BED WITH EQUAL CHEST RISE AND FALL. BED IS LOCKED AND IN LOWEST POSITION WITH CALL LIGHT IN REACH.
[2019-03-20 08:00] VITALS: BP 129/85
[2019-03-20] MEDS ORDERED: ASPIRIN EC 325 MG TABLET.DR PO SCH (09:00)
[2019-03-20] MEDS ORDERED: CLOPIDOGREL BISULFATE 75 MG TABLET PO SCH (09:00)
[2019-03-20] MEDS: buPROPion 75 MG TABLET PO SCH (10:06)
[2019-03-20] MEDS: ARIPIPRAZOLE 5 MG TABLET PO SCH (10:06)
[2019-03-20] MEDS: VALSARTAN 80 MG TABLET PO SCH (10:10)
[2019-03-20] MEDS ORDERED: IOHEXOL-350 100 ML VIAL IV ONE ×2 (11:05→13:18)
--- NOTE | 2019-03-20 11:23 | NUR ---
SPOKE WITH PT, PT IS STILL REFUSING CTA. STATES HE HAD IT DONE RECENTLY AND CAN NOT RECALL WHERE.
--- NOTE | 2019-03-20 11:34 | NUR ---
WOUND CARE CONSULT: PT PRESENTS WITH SCRATCHES AND SMALL SCABS ON LOWER LEGS, PRESENT ON ADMISSION. DEFER TO MD. WILL SEE PRN. CURRENT ANNAMARIA SCORE IS 20.
--- NOTE | 2019-03-20 11:35 | NUR ---
PT REFUSED AM LABS. WILL TRY AGAIN WHEN PT MORE AGREEABLE.
[2019-03-20] MEDS ORDERED: CT SWABBABLE VALVE TRANS SET 1 EA INFUS.SET MC ONE (13:19)
--- NOTE | 2019-03-20 13:21 | NUR ---
SPOKE WITH KARY UNABLE TO OBTAIN LEG SCRAPINGS CONTACTED BÁRBARA SHE IS UNAVAILABLE. DR. PHELPS AGREED TO COLLECT SCRAPINGS OF LEGS.
--- NOTE | 2019-03-20 13:28 | NUR ---
RADIOLOGY CAME TO PAINTER FOREMAN PT TOOK PT OUT OF UNIT. CAME BACK ONTO UNIT STATING THAT HE IS AGAIN REFUSING THE PROCEDURE THAT HE CHANGED HIS MIND AND DOES NOT WANT IT.
--- NOTE | 2019-03-20 13:36 | NUR ---
PLEASE DISREGARD CTA CORONARY EXAM REPORT. REPORT IS FOR DIFFERENT PT (OUT PT).
[2019-03-20 16:00] VITALS: BP 111/63
--- NOTE | 2019-03-20 19:00 | NUR ---
MS RN OPENING NOTES Received patient in bed, alert and oriented, watching TV at this time. Breathing even and unlabored. Not in any distress. IV site in LAC g#20 intact and patent. No complaints at this time. Isolation precautions maintained. Safety measures in place, call light within reach, bed in lowest, locked position. Will continue to monitor accordingly
--- NOTE | 2019-03-20 19:20 | NUR ---
RN CLOSING NOTES PT REFUSING LABS AND CT ANGIO. PT SCRAPPING DONE OF ABDOMEN HOWEVER LEGS NEED TO BE SCRAPPED AND PT WAS REFUSING LEG SCRAPPING STATING IT IS JUST BED BUGS ITS NO BIG DEAL. RISKS EXPLAINED PT STILL REFUSING. BED IS LOCKED AND IN LOWEST POSITION WITH CALL LIGHT IN REACH. PT IS ABLE TO AMBULATE TO RESTROOM. WILL EDORSE CONTINUATION OF CARE TO REHABILITATION TEAM LEAD RN.
[2019-03-20 20:00] VITALS: BP 126/74
--- NOTE | 2019-03-21 06:52 | NUR ---
MS RN CLOSING NOTES Patient still resting in bed. Breathing even and unlabored, Not in any distress. No acute changes overnight. Patient refused his bed to be made. He also refused vital signs to be taken in the morning. No complaints at this time. SAfety measures in place. Isolation precautions maintained. Will endorse EMMANUEL to oncoming RN
[2019-03-21 08:00] VITALS: BP 130/68
--- NOTE | 2019-03-21 08:00 | NUR ---
MS RN AM NOTES Patient still resting in bed. Breathing even and unlabored, Not in any distress. No acute changes overnight. Patient refused his bed to be made. Non compliant with lab draw.He also refused vital signs to be taken in the morning. No complaints at this time. SAfety measures in place. Isolation precautions for possible scabies.Denies itchiness at this time. Seen by Dr Martínez and was medically cleared and was ok to be dc to GPS or psych unit pt prefers.
[2019-03-21] MEDS: ARIPIPRAZOLE 5 MG TABLET PO SCH (09:27)
[2019-03-21] MEDS: buPROPion 75 MG TABLET PO SCH (09:27)
[2019-03-21] MEDS: VALSARTAN 80 MG TABLET PO SCH (09:28)
[2019-03-21 11:12] LABS: BASOPHILS # (AUTO) 0.1 /CMM (0.0-0.2); BASOPHILS % (AUTO) 0.8 % (0.0-2.0); EOSINOPHILS % (AUTO) 2.5 % (0.0-6.0); HEMATOCRIT 47 % (39-51); HEMOGLOBIN 15.5 g/dL (13.5-17.5); LYMPHOCYTES # (AUTO) 0.9 /CMM (0.8-4.8); LYMPHOCYTES % (AUTO) 12.3 % (20.0-44.0); MEAN CORPUSCULAR HGB CONC 33 g/dl (31.0-36.0); MEAN CORPUSCULAR VOLUME 92 fL (80-96); MONOCYTES # (AUTO) 0.6 /CMM (0.1-1.30); MONOCYTES % (AUTO) 8.8 % (2.0-12.0); NEUTROPHILS # (AUTO) 5.4 /CMM (1.8-8.9); NEUTROPHILS % (AUTO) 75.6 % (43.0-81.0); PLATELET COUNT (AUTO) 189 /CMM (150-450); RED BLOOD CELL COUNT(AUTO) 5.14 MIL/uL (4.5-6.0); WHITE BLOOD COUNT (AUTO) 7.2 K/uL (4.3-11.0)
[2019-03-21 11:26] LABS: CALCIUM, SERUM 9.2 mg/dL (8.5-10.1); CREATININE 1.1 mg/dL (0.6-1.3); MAGNESIUM 2.3 mg/dL (1.8-2.4); PHOSPHORUS 4.2 mg/dL (2.5-4.9); POTASSIUM 4.2 mmol/L (3.5-5.1)
[2019-03-21 12:00] VITALS: BP 126/72
[2019-03-21 15:07] VITALS: BP 126/72
--- NOTE | 2019-03-21 16:37 | NUR ---
DISCHARGED PT TO [facility] GPS UNIT WITH BELONGINGS WITH DX DEPRESSION UNDER DR MEZA AND DR ASHLEY PHELPS. WITH STABLE V/S.IV H/L REMOVED TO LT AC WITH NO BLEEDING NOTED.PT TOLERATED WELL. PT DENIES ANY PAIN OR DISTRESS.PT VOLUNTARILY WANTED TO BE DC'D TO [facility] GPS WITH HIS CONSENT.
[2019-03-21] MEDS ORDERED: MAGN400O6 PO (16:50)
[2019-03-21] MEDS ORDERED: VALS80TA2 PO (16:50)
[2019-03-21] MEDS ORDERED: ONDA4TAB5 PO (16:50)
[2019-03-21] MEDS ORDERED: MAG30ORA PO (16:50)
[2019-03-21] MEDS ORDERED: ALLA266C2 TP (16:50)
[2019-03-21] MEDS ORDERED: ACET-868 PO (16:50)
== END 2019-03-21 16:30 | DRG 882 ==
LOC: ER 13:33 → MEDSG1 15:18 → TELE1 15:53 → MEDSG1 03-20 10:24
PROVIDERS: ADMIT Family Medicine; ATTEND Family Medicine
DX: F45.41 Pain disorder exclusively related to psychological factors (principal); E44.1 Mild protein-calorie malnutrition; F33.3 Major depressive disorder, recurrent, severe with psychotic symptoms; F17.210 Nicotine dependence, cigarettes, uncomplicated; J44.9 Chronic obstructive pulmonary disease, unspecified; M19.90 Unspecified osteoarthritis, unspecified site; Z95.5 Presence of coronary angioplasty implant and graft; I50.9 Heart failure, unspecified; I11.0 Hypertensive heart disease with heart failure; R73.9 Hyperglycemia, unspecified; Z68.36 Body mass index [BMI] 36.0-36.9, adult; I25.10 Atherosclerotic heart disease of native coronary artery without angina pectoris; F41.9 Anxiety disorder, unspecified; R21 Rash and other nonspecific skin eruption; E66.9 Obesity, unspecified
CPT/HCPCS: 36415; 71045-TC; 75574; 80048-TC; 80061-TC; 80076-TC; 83735-TC; 84100-TC; 84484-TC; 85025-TC; 87081-TC; 97116-TC; 97530-TC; G0378; Q9967

== ENCOUNTER 2019-03-21 16:37 | Inpatient (IN) | payer MEDICARE, MEDICAID ==
[~2019-03-21] VITALS: Ht 175.3 cm; Wt 108.9 kg
[~2019-03-21 16:37] MED LIST changes: -ACET325T53 PO; -AMLO5TAB9 PO; -APIX5TAB4 PO; +ARIP5TAB10 PO; -ASPI-869 PO; -ATOR40TA PO; +BUPR75TA8 PO; +CLOP75TA15 PO; -ESCI10TA PO; -HYDR-4076 PO; -HYDR12.5 PO; -LACT1CAP89 PO; -LEVO125T8 PO; -MAG30ORA PO; -MAGN400O6 PO; -MENT4PAS TP; -METO25TA6 PO; -MULT-1119 PO; -NA P133E RC; -ONDA4TAB11 PO; -ZOLP5TAB8 PO
[2019-03-21] MEDS ORDERED: MAGN400O6 PO (16:50)
[2019-03-21] MEDS ORDERED: VALS80TA2 PO (16:50)
[2019-03-21] MEDS ORDERED: ALLA266C2 TP (16:50)
[2019-03-21] MEDS ORDERED: ACET-868 PO (16:50)
[2019-03-21] MEDS ORDERED: ONDA4TAB5 PO (16:50)
[2019-03-21] MEDS ORDERED: MAG30ORA PO (16:50)
[2019-03-21] MEDS ORDERED: MAGNESIUM HYDROXIDE 30 ML UDC PO PRN ×2 (17:00→21:00)
[2019-03-21] MEDS ORDERED: ACETAMINOPHEN 325 MG TABLET PO PRN (17:00)
[2019-03-21] MEDS ORDERED: MAG HYDROX/AL HYDROX/SIMETH 30 ML UDC PO PRN ×2 (17:00→21:00)
[2019-03-21] MEDS ORDERED: BLOOD SUGAR DIAGNOSTIC 1 EACH STRIP IN ONE (17:00)
--- NOTE | 2019-03-21 17:55 | NUR ---
GPS/RN-NOTES REFUSED ACCU-CHECK DESPITE EXPLANATIONS RISK AND BENEFITS. OFFERED X3.
[2019-03-21] MEDS: LORAZEPAM 0.5 MG TABLET PO PRN (17:58)
--- NOTE | 2019-03-21 17:59 | NUR ---
GPS/RN-NOTES PATIENT REQUESTING ATIVAN. STATED" I NEED ATIVAN,I'M VERY ANXIOUS" ATIVAN 1MG P.O GIVEN PRN ORDER. WILL CONT. MONITORING FOR SAFETY AND BEHAVIOR.
[2019-03-21 18:48] VITALS: BP 106/60
--- NOTE | 2019-03-21 18:50 | NUR ---
GPS/RN-NOTES ADMITTED 73 Y.O MALE PATIENT FROM [facility]. PATIENT SIGN VOLUNTARY. PATIENT IS UNDER THE CARE OF DR. MEZA ( PSYCHIATRIST) MADE AWARE WITH ORDERS. BLAINE PHELPS ( COVERSTITCH ELASTIC ATTACHER) ALSO MADE AWARE OF THE ADMISSION AND TO RECONCILE MEDICATIONS STATED HE WILL DO IT. UPON FACE TO FACE ASSESSMENT WITH THE PATIENT , PATIENT STATED" I'M DEPRESSED BUT I'M NOT SUICIDAL OR HOMICIDAL". PATIENT IS COOPERATIVE DURING THE ADMISSION PROCESS..FULL BODY ASSESSMENT,CONTRABAND AND MRSA DONE. PATIENT . PATIENT WAS ORIENTED IN THE UNIT AND UNIT POLICIES. ALL ADMISSION PAPERS WAS SIGN BY THE PATIENT.PATIENT'S RIGHT WAS REVIEWED AND THE POCKET WAS GIVEN TO THE PATIENT.WILL ENDORSE TO THE INCOMING NURSE FOR THE CONTINUITY OF THE ADMISSION PROCESS AND CARE.
[2019-03-21 19:51] VITALS: BP 102/54
[2019-03-21] MEDS ORDERED: Z GUARD REMEDY 2 OZ OINT TP PRN (21:00)
[2019-03-21] MEDS ORDERED: ONDANSETRON 4 MG TAB.RAPDIS PO PRN (21:00)
[2019-03-21] MEDS ORDERED: ZOLPIDEM TARTRATE 5 MG TABLET PO PRN (22:00)
[2019-03-22 08:00] VITALS: BP 135/61
[2019-03-22] MEDS: VALSARTAN 80 MG TABLET PO SCH (08:29)
[2019-03-22] MEDS: CLOPIDOGREL BISULFATE 75 MG TABLET PO SCH (08:29)
[2019-03-22] MEDS: LORAZEPAM 0.5 MG TABLET PO PRN ×2 (12:20→20:20)
[2019-03-22] MEDS: buPROPion 75 MG TABLET PO SCH (13:31)
[2019-03-22 14:46] LABS: ALBUMIN 3.3 g/dL (3.4-5.0); BILIRUBIN,TOTAL 0.3 mg/dL (0.2-1.0); CALCIUM, SERUM 8.9 mg/dL (8.5-10.1); CREATININE 1.3 mg/dL (0.6-1.3); POTASSIUM 4.4 mmol/L (3.5-5.1); TOTAL PROTEIN, SERUM 7.3 g/dL (6.4-8.2)
[2019-03-22 14:48] LABS: CHOLESTEROL 164 mg/dL (<200); HDL CHOLESTEROL 30 mg/dL (40-60); LDL 101 mg/dL (0-99); TRIGLYCERIDES 237 mg/dL (30-150)
[2019-03-22 15:59] VITALS: BP 125/64
[2019-03-22 19:46] VITALS: BP 108/52
[2019-03-22] MEDS ORDERED: QUETIAPINE FUMARATE 100 MG TABLET PO SCH (22:00)
[2019-03-23] MEDS: buPROPion 75 MG TABLET PO SCH (09:00)
[2019-03-23] MEDS: CLOPIDOGREL BISULFATE 75 MG TABLET PO SCH (09:00)
[2019-03-23] MEDS: VALSARTAN 80 MG TABLET PO SCH (09:00)
--- NOTE | 2019-03-23 09:44 | NUR ---
GPS RN NOTES PATIENT IN BED CALMED, QUIET AND LOOKS DEPRESS. VERBALLY RESPONSIVE, DENIES PAIN OR ANY DISCOMFORTS AT THIS TIME. DENIES HI/SI. PT REFUSED TO HAVE V/S TAKEN , SAME REFUSED ALL HIS MORNING MEDICATIONS DESPITE EXPLAINING RISKS AND BENEFITS. PT REFUSED TO PARTICIPATES IN GROUP ACTIVITY AND PREFERS TO STAY IN BED THIS MORNING. ALL SAFETY MEASURES KEPT IN PLACE. WILL CONTINUE TO MONITOR PT Q 15MINS FOR BEHAVIOR AND SAFETY.
[2019-03-23 16:00] VITALS: BP 107/64
[2019-03-23] MEDS: LORAZEPAM 0.5 MG TABLET PO PRN (18:15)
--- NOTE | 2019-03-23 18:18 | NUR ---
GPS RN NOTES PT NOTED ANXIOUS AND REQUESTED FOR ATIVAN. PRN ATIVAN 0.5MG PO GIVEN AT 1815. WILL CONTINUE TO MONITOR
[2019-03-23 20:11] VITALS: BP 110/44
[2019-03-23] MEDS ORDERED: QUETIAPINE FUMARATE 100 MG TABLET PO SCH (22:00)
[2019-03-24] MEDS: CLOPIDOGREL BISULFATE 75 MG TABLET PO SCH ×3 (09:41→10:18)
[2019-03-24] MEDS: VALSARTAN 80 MG TABLET PO SCH ×3 (09:41→10:18)
[2019-03-24] MEDS: buPROPion 75 MG TABLET PO SCH ×2 (09:42→09:49)
[2019-03-24 09:46] VITALS: BP 111/59
--- NOTE | 2019-03-24 10:26 | NUR ---
Wellbutrin 75 mg by mouth administered even though mar does not reflect this administration. Kenny Cummings RN
--- NOTE | 2019-03-24 15:23 | NUR ---
Initial Discharge Plan: Pt is currently homeless. Pt stated that he may be interested in placement at [facility]. SW will work with the pt and the MD regarding appropriate discharge planning. SW will form a safe and proper discharge plan.
--- NOTE | 2019-03-24 15:45 | NUR ---
Group Note: SW encouraged the pt to participate in group therapy since he was recently cleared for scabies on 03/24/19 at 2pm discussing discharge planning. The pt stated that he was upset with the SW because she stated that he had previously been at this hospital in August and he stated that he could not remember that. He stated that he is a voluntary pt and that he would like to be able to be discharged where he wants and when he wants.
[2019-03-24 16:00] VITALS: BP 101/57
[2019-03-24] MEDS: LORAZEPAM 0.5 MG TABLET PO PRN (19:52)
[2019-03-24 20:00] VITALS: BP 90/60
[2019-03-24 20:29] VITALS: BP 90/60
[2019-03-24] MEDS: ZOLPIDEM TARTRATE 5 MG TABLET PO PRN (21:53)
--- NOTE | 2019-03-25 07:01 | NUR ---
CUSTOMER SERVICE CASHIER NOTES PT SLEPT WELL AFTER SLEEP MEDICATION GIVEN LAST NIGHT. STABLE BERNA THE NIGHT AND ALL NEEDS MET. KEPT HIM WARM AND COMFORTABLE AT ALL TIMES. ENDORSE TO AM NURSE FOR CONTINUITY OF CARE.
[2019-03-25 08:00] VITALS: BP 125/81
[2019-03-25] MEDS: CLOPIDOGREL BISULFATE 75 MG TABLET PO SCH (08:32)
[2019-03-25] MEDS: BUPROPION XL 150 MG TAB.ER.24 PO SCH (08:32)
[2019-03-25] MEDS: VALSARTAN 80 MG TABLET PO SCH (09:26)
--- NOTE | 2019-03-25 09:46 | NUR ---
Individual Intervention: SW spoke to the pt about his discharge and he stated that he wanted to be discharged to a "facility on [facility]." SW looked it up and stated that the only one she saw was [facility] and he stated that was the facility he wants.
--- NOTE | 2019-03-25 09:54 | NUR ---
SNF Referral: JANNY faxed a referral to [facility] with attention to Wendy to the fax number: [phone].
--- NOTE | 2019-03-25 10:48 | NUR ---
Individual Intervention: SW encouraged the pt to take a shower as stated as a goal in his treatment plan. Pt stated that he wanted his Ativan and that he would wait for his nurse in his room.
[2019-03-25] MEDS: LORAZEPAM 0.5 MG TABLET PO PRN ×2 (10:49→20:20)
--- NOTE | 2019-03-25 14:11 | NUR ---
Individual Intervention: Pt informed the SW that he would like to be discharged the next day to [facility]. SW explained that he should not be utilizing his hospital days and informed him that the SW sent out a snf referral. He stated that he is not ready for a snf at this time and would like to be discharged to [facility] because it is a "better hospital." SW stated that he is a voluntary pt and that he has the right to make this decision.
--- NOTE | 2019-03-25 15:34 | NUR ---
GROUP NOTE: SW encouraged pt to participate in group on this present day discussing "discharge planning." Pt refused to participate as he is focused on leaving AMA on this present day. Pt stated he was waiting for the psychiatrist to come so he can go to [facility].
[2019-03-25 16:00] VITALS: BP 100/69
[2019-03-25 20:30] VITALS: BP 96/54
[2019-03-25] MEDS: ZOLPIDEM TARTRATE 5 MG TABLET PO PRN (20:48)
[2019-03-26 08:00] VITALS: BP 91/49
[2019-03-26 08:37] VITALS: BP 91/49
[2019-03-26] MEDS: VALSARTAN 80 MG TABLET PO SCH (08:37)
[2019-03-26] MEDS: BUPROPION XL 150 MG TAB.ER.24 PO SCH (08:37)
[2019-03-26] MEDS: CLOPIDOGREL BISULFATE 75 MG TABLET PO SCH (08:37)
[2019-03-26] MEDS: LOPERAMIDE HCL (2 MG CAP) 2 MG CAPSULE PO PRN ×2 (08:50→12:51)
--- NOTE | 2019-03-26 13:06 | NUR ---
Dr. Aldrich came and spoke to the pt. and after talking he ordered D/C pt. AMA. Pt. signed the AMA papers, was explained on the risk of going AMA and still wanted to go AMA. Pt. without distress, denies suicidal and homicidal.
--- NOTE | 2019-03-26 14:13 | NUR ---
GPS/RN - Discharge (AMA) Patient demanded to leave the unit against medical advice. Dr. Aldrich spoke to the patient and Md ordered discharge AMA. Patient advised that when he leaves he would assume full responsibility for himself and stated "That's fine with me." Explained on the risk and consequences of leaving AMA and still wanted to go AMA. Patient is A/O x 4, no c/o pain, not in any form of distress, afebrile, ambulatory, denies suicidal and homicidal ideations, refused discharge pictures to be taken. Patient left the unit at 14:00 with all belongings. Patient signed the AMA discharge papers. Treatment goals not met. Addendum: 03/26/19 at 1417 by ANETA GRUBBS RN In addition to above notes: Patient refused copies of discharge papers stated "I don't need it."
--- NOTE | 2019-03-26 16:08 | NUR ---
Discharge Note: Pt was discharged against medical advice (AMA) to [address] [place] [address]; . Pt was discharged around 2pm. There was no one to notify about this discharge. Pt was not be provided with a TAP card but was provided with bus directions. Pt refused to sign the homeless waiver because he was upset about his discharge being later than he had wanted. Pt was provided with homeless resources such as shelters, food cortés, mental health clinics, health clinicals, and substance abuse referrals.
== END 2019-03-26 14:00 | disposition left against medical advice (07) | DRG 885 ==
LOC: GPS 16:37
PROVIDERS: ADMIT Psychiatry & Neurology Psychiatry; ATTEND Nurse Practitioner Acute Care
DX: F33.3 Major depressive disorder, recurrent, severe with psychotic symptoms (principal); N17.0 Acute kidney failure with tubular necrosis; I11.0 Hypertensive heart disease with heart failure; I50.32 Chronic diastolic (congestive) heart failure; E11.9 Type 2 diabetes mellitus without complications; F41.9 Anxiety disorder, unspecified; I25.10 Atherosclerotic heart disease of native coronary artery without angina pectoris; J44.9 Chronic obstructive pulmonary disease, unspecified; M19.90 Unspecified osteoarthritis, unspecified site; F17.210 Nicotine dependence, cigarettes, uncomplicated; F45.41 Pain disorder exclusively related to psychological factors; E88.09 Other disorders of plasma-protein metabolism, not elsewhere classified; R21 Rash and other nonspecific skin eruption; E66.01 Morbid (severe) obesity due to excess calories; Z68.35 Body mass index [BMI] 35.0-35.9, adult; Z59.0 Homelessness
CPT/HCPCS: 36415; 80053-TC; 80061-TC; 87081-TC

== ENCOUNTER 2019-06-30 15:46 | Emergency (ER) | payer MEDICARE, OTHER ==
[~2019-06-30] VITALS: Ht 175.3 cm; Wt 108.9 kg
[~2019-06-30 15:46] MED LIST changes: +ACET-868 PO; +ALLA266C2 TP; +MAG30ORA PO; +MAGN400O6 PO; +ONDA4TAB5 PO; +VALS80TA2 PO
--- NOTE | 2019-06-30 16:27 | NUR ---
patient came in to the ER c/o severely depressed. on room, air, breathing evenly and unlabored. connected to the monitor and pulse ox. kept comfortable, will continue to monitor accordingly.
[2019-06-30] MEDS ORDERED: ASPI-1169 PO (16:28)
[2019-06-30 16:39] LABS: BASOPHILS % (AUTO) 0.5 % (0.0-2.0); EOSINOPHILS % (AUTO) 1.3 % (0.0-6.0); HEMATOCRIT 43 % (39-51); HEMOGLOBIN 14.5 g/dL (13.5-17.5); LYMPHOCYTES # (AUTO) 0.8 /CMM (0.8-4.8); LYMPHOCYTES % (AUTO) 9.2 % (20.0-44.0); MEAN CORPUSCULAR HGB CONC 34 g/dl (31.0-36.0); MEAN CORPUSCULAR VOLUME 91 fL (80-96); MONOCYTES # (AUTO) 0.6 /CMM (0.1-1.30); MONOCYTES % (AUTO) 6.8 % (2.0-12.0); NEUTROPHILS # (AUTO) 7.2 /CMM (1.8-8.9); NEUTROPHILS % (AUTO) 82.2 % (43.0-81.0); PLATELET COUNT (AUTO) 196 /CMM (150-450); RED BLOOD CELL COUNT(AUTO) 4.79 MIL/uL (4.5-6.0); WHITE BLOOD COUNT (AUTO) 8.7 K/uL (4.3-11.0)
[2019-06-30 16:45] LABS: CALCIUM, SERUM 8.6 mg/dL (8.5-10.1); CARBON DIOXIDE 28 mmol/L (21-32); CHLORIDE 105 mmol/L (98-107); CREATININE 1.3 mg/dL (0.6-1.3); GLUCOSE 111 mg/dL (74-106); POTASSIUM 3.7 mmol/L (3.5-5.1); SODIUM SERUM 139 mmol/L (136-145); UREA NITROGEN, BLOOD 21 mg/dL (7-18)
[2019-06-30 16:51] LABS: ALANINE AMINOTRANSFERASE 15 U/L (12-78); ALBUMIN 2.9 g/dL (3.4-5.0); ALCOHOL, BLOOD < 3 mg/dL (0-0); ALKALINE PHOSPHATASE 65 U/L (46-116); ASPARTATE AMINOTRANSFERASE 16 U/L (15-37); BILIRUBIN,DIRECT 0.1 mg/dL (0.0-0.2); BILIRUBIN,TOTAL 0.4 mg/dL (0.2-1.0)
[2019-06-30 16:52] LABS: SALICYLATE < 2.8 mg/dL (2.8-20.0)
--- NOTE | 2019-06-30 17:20 | NUR ---
CALLED [facility] [phone] ASKED TO BE TRANSFERED TO ADMITTING
[2019-06-30 17:56] LABS: APPEARANCE,URINE Clear (CLEAR); BILIRUBIN,URINE Negative (NEGATIVE); BLOOD, URINE Negative Ery/uL (NEGATIVE); COLOR,URINE Yellow (YELLOW); KETONES,URINE Negative (NEGATIVE); LEUKOCYTE ESTERASE ,URINE Negative (NEGATIVE); NITRITE, URINE Negative (NEGATIVE); PROTEIN,URINE Negative (NEGATIVE); UGLUCOSE Negative (NEGATIVE)
[2019-06-30 17:58] LABS: BACTERIA,URINE None seen /HPF (None Seen); RBC,URINE 0-2 /HPF (0-2); SQUAMOUS EPITHELIAL CELL,UR Rare /HPF (None Seen)
--- NOTE | 2019-06-30 19:12 | NUR ---
report given to jailyn ansari gabriela.
[2019-06-30] MEDS ORDERED: LORAZEPAM 0.5 MG TABLET ONE (19:27)
[2019-06-30] MEDS ORDERED: LORAZEPAM 1 MG TABLET PO ONE (19:30)
--- NOTE | 2019-06-30 20:35 | NUR ---
PT ACCEPTED TO [facility] BY DR MCINTOSH. # FOR REPORT [phone]
--- NOTE | 2019-06-30 20:39 | NUR ---
CALLED [facility] FOR BLS [employer]OP MAKER MACHINE. ETA [phone]. TRIP [phone]
[2019-06-30 23:23] VITALS: BP 138/75
--- NOTE | 2019-06-30 23:26 | NUR ---
REPORT GIVEN TO ADAN AT [facility]
--- NOTE | 2019-07-01 | NUR ---
PT WAS PICKED UP BY [facility] IN STABLE CONDITION AND TRANSFERRED TO [facility]. ALL BELONGINGS PICKED UP BY THE PT / charging machine operator.
== END 2019-07-01 ==
LOC: ER 15:46
DX: F32.9 Major depressive disorder, single episode, unspecified (principal); I10 Essential (primary) hypertension; I25.10 Atherosclerotic heart disease of native coronary artery without angina pectoris; M19.90 Unspecified osteoarthritis, unspecified site; F17.200 Nicotine dependence, unspecified, uncomplicated; Z90.49 Acquired absence of other specified parts of digestive tract; Z90.89 Acquired absence of other organs; Z95.818 Presence of other cardiac implants and grafts; Z79.82 Long term (current) use of aspirin
CPT/HCPCS: 36415; 80048; 80076; 80305; 80307; 80329; 81001; 85025; 99285; G0480; 81000-TC